=== PATIENT | female | born 1950 | race Caucasian/White ===

== ENCOUNTER 2023-01-07 16:36 | Emergency (ER) | payer OTHER ==
[~2023-01-07] VITALS: Ht 160 cm; Wt 72.0 kg
[~2023-01-07 16:36] MED LIST: ATEN-60 PO; LEVO150T10 PO; LISI-285 PO; ZOLP10TA PO
[2023-01-07 19:07] LABS: Basophils # (auto) 0.1 10 ^3/uL (0-0.2); Basophils % (auto) 0.5 % (0.0-2.0); Eosinophils # (auto) 0.2 10 ^3/uL (0-0.8); Hematocrit 29.3 % (36.0-46.0); Hemoglobin 9.4 g/dL (12.2-16.2); Lymphocytes # (auto) 2.2 10 ^3/uL (0.4-5.4); Lymphocytes % (auto) 19.2 % (10.0-50.0); Mean Corpuscular Hemoglobin 27.7 pg (28.0-32.0); Mean Corpuscular Volume 86.7 fL (80.0-100.0); Monocytes # (auto) 0.6 10 ^3/uL (0-1.3); Monocytes % (auto) 5.6 % (0.0-12.0); Neutrophils # (auto) 8.2 10 ^3/uL (1.6-8.6); Neutrophils % (auto) 72.7 % (37.0-80.0); Nucleated Red Blood Cells % 0.1 %; Red Blood Cells 3.38 10^6/uL (4.0-5.20); Red Cell Distribution Width 17.8 % (11.8-14.3); White Blood Cell 11.3 10^3/uL (4.4-10.8)
[2023-01-07 19:30] LABS: Albumin 3.5 g/dL (3.4-5.0); BUN/Creatinine Ratio 50.3 (10.0-20.0); Potassium 4.2 mmol/L (3.5-5.1)
[2023-01-07 19:33] LABS: Bilirubin, Total 0.2 mg/dL (0.2-1.0); Total Protein 8.1 g/dL (6.4-8.2)
[2023-01-07 21:31] VITALS: BP 121/47
== END 2023-01-07 21:48 | disposition home or self-care (01) ==
LOC: ER 16:36
DX: N17.9 Acute kidney failure, unspecified (principal); D64.9 Anemia, unspecified; M47.23 Other spondylosis with radiculopathy, cervicothoracic region; R79.89 Other specified abnormal findings of blood chemistry; F17.210 Nicotine dependence, cigarettes, uncomplicated; I10 Essential (primary) hypertension; R06.02 Shortness of breath
CPT/HCPCS: 36415; 70450; 71045; 72125; 80053; 83880; 84484; 85025; 93005

== ENCOUNTER → 2023-06-10 | Outpatient (CLI) | payer OTHER ==
[~2023-06-10] VITALS: Ht 162.6 cm; Wt 72.6 kg
[~2023-06-10] MED LIST changes: +ADENOSINE 61 MG in GIVE UN-DILUTED 0 ML IV STA
== END | disposition home or self-care (01) ==
LOC: XYW 08:34
PROVIDERS: ATTEND Internal Medicine
DX: R00.1 Bradycardia, unspecified (principal); R09.89 Other specified symptoms and signs involving the circulatory and respiratory systems
CPT/HCPCS: 78452; 93017; A9500; J0153

== ENCOUNTER 2023-09-05 09:04 | Inpatient (IN) | payer OTHER ==
[~2023-09-05] VITALS: Ht 162.6 cm; Wt 89.0 kg
[~2023-09-05 09:04] MED LIST changes: -ADENOSINE 61 MG in GIVE UN-DILUTED 0 ML IV STA; +FER325T PO; +LEV100T PO; -LEVO150T10 PO; -LISI-285 PO; +METF-370 PO; +PRAV20TA3 PO; -ZOLP10TA PO
[2023-09-05] MEDS ORDERED: TRANEXAMIC ACID 20 ML ONE (11:09)
[2023-09-05] MEDS ORDERED: LIDOCAINE W/ EPINEPHRINE 1% 20ML VIAL ONE (11:10)
[2023-09-05] MEDS ORDERED: SUCCINYLCHOLINE CHLORIDE 20 MG/ML 10ML VIAL IV ONE (11:22)
[2023-09-05] MEDS ORDERED: fentaNYL CITRATE 5 ML ONE (11:28)
[2023-09-05] MEDS ORDERED: ceFAZolin 2 GM/D5W100ml 100 ML IV ONE (12:24)
[2023-09-05] MEDS ORDERED: D5W/SOD CHLO 0.9% 1,000 ML IV SCH (15:30)
[2023-09-05] MEDS ORDERED: ePHEDrine SULFATE 50 MG/ML AMP IV PRN (15:30)
[2023-09-05] MEDS ORDERED: NITROGLYCERIN 0.4 MG SL TAB SL PRN (15:30)
[2023-09-05] MEDS ORDERED: MIDAZOLAM HCL 2MG/2ML 2ml VIAL (1mg/ml) IV PRN (15:30)
[2023-09-05] MEDS ORDERED: ACCU-CHEK COMFORT CURVE STRIP VI ONE (15:30)
[2023-09-05] MEDS ORDERED: MORPHINE SULFATE 4 MG/ML SYR/VIAL IV PRN (15:30)
[2023-09-05] MEDS ORDERED: ACETAMINOPHEN 325 MG TAB PO PRN (15:30)
[2023-09-05] MEDS ORDERED: HYDROmorphone HCL 2 MG/ML VL/or syr IV PRN ×2 (15:30→17:30)
[2023-09-05] MEDS ORDERED: ceFAZolin 1GM/50ML 50 ML IV SCH ×2 (15:30→22:00)
[2023-09-05] MEDS ORDERED: LABETALOL HCL 5 MG/ML 4ML SYRINGE IV PRN (15:30)
[2023-09-05] MEDS ORDERED: ONDANSETRON HCL 4 MG/2 ML VIAL IV PRN ×2 (15:30)
[2023-09-05] MEDS ORDERED: MORPHINE SULFATE INJ 2 MG/ml SYRG IV PRN ×2 (15:30)
[2023-09-05 16:12] VITALS: O2SAT 100
[2023-09-05] MEDS: CYCLOBENZAPRINE HCL 10 MG TAB PO SCH ×2 (16:29→22:12)
[2023-09-05] MEDS: HYDROcodone-ACET 10/325MG TAB PO PRN ×2 (16:29→18:37)
[2023-09-05] MEDS ORDERED: HYDROmorphone HCL 2 MG/ML VL/or syr ONE (16:37)
[2023-09-05] MEDS: HYDROmorphone HCL 2 MG/ML VL/or syr IV PRN ×2 (16:39→16:49)
[2023-09-05] MEDS ORDERED: LACTATED RINGER'S 1,000 ML IV SCH (17:30)
[2023-09-05 17:44] VITALS: BP_SYST 102; BP_SYST 95; BP_DIAS 54; BP_DIAS 63; PULSE 68; PULSE 69; RESP 18; RESP 20; TEMP 97.9; TEMP 98.5; O2SAT 99
[2023-09-05] MEDS ORDERED: DEXTROSE (50%) 50ML SYRG IV PRN (18:15)
[2023-09-05 18:46] VITALS: PULSE 73; RESP 14; O2SAT 93
[2023-09-05 20:00] VITALS: BP 95/54; PULSE 68; PULSE 76; RESP 20; TEMP 98.5; O2SAT 99
[2023-09-05 22:00] VITALS: BP 95/54; PULSE 68; RESP 20; TEMP 98.5; O2SAT 99
[2023-09-05] MEDS ORDERED: DOCUSATE SOD 100 MG CAP PO SCH (22:00)
[2023-09-05] MEDS: SENNA 8.6 MG TAB PO SCH (22:11)
[2023-09-05] MEDS: ATORVASTATIN 20 MG TAB PO SCH (22:12)
[2023-09-05] MEDS: ACCU-CHEK COMFORT CURVE STRIP VI SCH (22:17)
[2023-09-05] MEDS: InsuLIN REG 1unit/0.01ml Soln (100units/ml) SC SCH (22:23)
[2023-09-06] VITALS (9 sets, daily range): BP systolic 92–138; BP diastolic 37–62; PULSE 66–93; RESP 12–21; TEMP 97.3–98.8; O2SAT 93–99
[2023-09-06] MEDS ORDERED: LISI20TA56 PO (04:15)
[2023-09-06] MEDS ORDERED: LEVO100T8 PO (04:15)
[2023-09-06 06:24] LABS: Basophils # (auto) 0 10 ^3/uL (0-0.2); Eosinophils # (auto) 0 10 ^3/uL (0-0.8); Hemoglobin 7.4 g/dL (12.2-16.2)
[2023-09-06 06:27] LABS: Basophils % (auto) 0.2 % (0.0-2.0); Hematocrit 23.9 % (36.0-46.0); Lymphocytes % (auto) 7.3 % (10.0-50.0); Mean Corpuscular Hemoglobin 25.6 pg (28.0-32.0); Mean Corpuscular Hgb Conc. 31.1 g/dL (32.0-36.0); Mean Corpuscular Volume 82.4 fL (80.0-100.0); Monocytes # (auto) 0.8 10 ^3/uL (0-1.3); Neutrophils # (auto) 11.6 10 ^3/uL (1.6-8.6); Neutrophils % (auto) 86.5 % (37.0-80.0); Red Cell Distribution Width 19.6 % (11.8-14.3); White Blood Cell 13.4 10^3/uL (4.4-10.8)
[2023-09-06 06:32] LABS: Chloride 107 mmol/L (98-107); Potassium 4.5 mmol/L (3.5-5.1); Sodium 138 mmol/L (136-145)
[2023-09-06] MEDS: LEVOTHYROXINE SODIUM 100 MCG TAB PO SCH (06:32)
[2023-09-06 06:33] LABS: Anion Gap 7 (5-15); Calcium 8.5 mg/dL (8.7-10.4); Carbon Dioxide 24 mmol/L (20-30)
[2023-09-06] MEDS: ACCU-CHEK COMFORT CURVE STRIP VI SCH ×4 (06:33→21:28)
[2023-09-06 06:38] LABS: Blood Urea Nitrogen 23 mg/dL (9-23); Glucose 124 mg/dL (74-106)
[2023-09-06] MEDS: InsuLIN REG 1unit/0.01ml Soln (100units/ml) SC SCH ×4 (06:50→21:24)
[2023-09-06] MEDS: ATENOLOL 25 MG TAB PO SCH (09:24)
[2023-09-06] MEDS: NICOTINE 21MG/24 HR TOPICAL PATCH TD SCH (09:26)
[2023-09-06] MEDS ORDERED: IRON SUCROSE COMPLEX 200 MG in SODIUM CHL 0.9% 100 ML IV SCH (12:15)
[2023-09-06] MEDS: CYCLOBENZAPRINE HCL 10 MG TAB PO SCH ×2 (13:48→21:26)
[2023-09-06] MEDS: HYDROcodone-ACET 10/325MG TAB PO PRN (20:27)
[2023-09-06] MEDS: ATORVASTATIN 20 MG TAB PO SCH (21:25)
[2023-09-06] MEDS: SENNA 8.6 MG TAB PO SCH (21:27)
[2023-09-06 22:36] LABS: Urine Bacteria FEW /hpf (None Seen); Urine Blood Negative /uL (Negative); Urine Clarity Clear (Clear); Urine Color Colorless (Yellow); Urine Protein, UAD Negative (Negative); Urine Specific Gravity 1.007 (1.001-1.035); Urine Urobilinogen Normal (Negative); Urine WBC 6 /hpf (0 - 5); Urine pH 6.5 (5.0-8.0)
[2023-09-07] VITALS (7 sets, daily range): BP systolic 103–127; BP diastolic 49–69; PULSE 56–90; RESP 16–20; TEMP 97.8–98.2; O2SAT 95–100
[2023-09-07] MEDS: CYCLOBENZAPRINE HCL 10 MG TAB PO SCH ×3 (05:47→21:54)
[2023-09-07] MEDS: InsuLIN REG 1unit/0.01ml Soln (100units/ml) SC SCH ×4 (06:30→22:05)
[2023-09-07] MEDS: ACCU-CHEK COMFORT CURVE STRIP VI SCH ×4 (06:30→21:54)
[2023-09-07] MEDS: LEVOTHYROXINE SODIUM 100 MCG TAB PO SCH (06:33)
[2023-09-07] MEDS: HYDROcodone-ACET 10/325MG TAB PO PRN ×2 (10:09→16:19)
[2023-09-07] MEDS ORDERED: cefTRIAXone 1GM/50ML D5W 50 ML IV ONE (11:00)
[2023-09-07] MEDS: ATENOLOL 25 MG TAB PO SCH (11:48)
[2023-09-07] MEDS: NICOTINE 21MG/24 HR TOPICAL PATCH TD SCH (11:49)
[2023-09-07] MEDS ORDERED: SODIUM FERR GLUC 125 MG in NS 100 ML IV SCH (12:00)
[2023-09-07] MEDS: SENNA 8.6 MG TAB PO SCH (21:54)
[2023-09-07] MEDS: ATORVASTATIN 20 MG TAB PO SCH (21:54)
[2023-09-08] MEDS: HYDROcodone-ACET 10/325MG TAB PO PRN (04:44)
[2023-09-08 05:00] VITALS: BP 132/66; PULSE 65; RESP 16; TEMP 97.7; O2SAT 98
[2023-09-08] MEDS: LEVOTHYROXINE SODIUM 100 MCG TAB PO SCH (05:51)
[2023-09-08] MEDS: CYCLOBENZAPRINE HCL 10 MG TAB PO SCH (05:51)
[2023-09-08] MEDS: ACCU-CHEK COMFORT CURVE STRIP VI SCH ×2 (06:05→11:30)
[2023-09-08] MEDS: InsuLIN REG 1unit/0.01ml Soln (100units/ml) SC SCH ×2 (06:05→11:30)
[2023-09-08 06:53] LABS: Hematocrit 24.2 % (36.0-46.0); Hemoglobin 7.6 g/dL (12.2-16.2)
[2023-09-08 08:05] VITALS: BP 125/42; PULSE 60; RESP 20; TEMP 98; O2SAT 100
[2023-09-08] MEDS ORDERED: cefTRIAXone 1GM/50ML D5W 50 ML IV SCH (09:00)
[2023-09-08 09:01] VITALS: BP 125/42; PULSE 60; RESP 20; TEMP 98; O2SAT 97
[2023-09-08] MEDS: ATENOLOL 25 MG TAB PO SCH (10:45)
[2023-09-08] MEDS: NICOTINE 21MG/24 HR TOPICAL PATCH TD SCH (10:45)
[2023-09-08 11:47] VITALS: BP 125/42; PULSE 60; RESP 20; TEMP 98; O2SAT 97
[2023-09-08 12:15] VITALS: BP 108/49; PULSE 64; RESP 18; TEMP 97.8; O2SAT 99
== END 2023-09-08 13:32 | disposition home or self-care (01) | DRG 520 ==
LOC: SUR 09:04 → TELE 15:22 → TELE-EAST 17:13
PROVIDERS: ADMIT Orthopaedic Surgery; ATTEND Orthopaedic Surgery
PROC: 00NY0ZZ Release Lumbar Spinal Cord, Open Approach (ICD-10-PCS; 2023-09-05)
PROC: 01NB0ZZ Release Lumbar Nerve, Open Approach (ICD-10-PCS; 2023-09-05)
PROC: 4A11X4G Monitoring of Peripheral Nervous Electrical Activity, Intraoperative, External Approach (ICD-10-PCS; 2023-09-05)
PROC: 0SW004Z Revision of Internal Fixation Device in Lumbar Vertebral Joint, Open Approach (ICD-10-PCS; principal; 2023-09-05 11:55)
DX: M96.1 Postlaminectomy syndrome, not elsewhere classified (principal); D63.8 Anemia in other chronic diseases classified elsewhere; E03.9 Hypothyroidism, unspecified; E78.00 Pure hypercholesterolemia, unspecified; I10 Essential (primary) hypertension; E11.9 Type 2 diabetes mellitus without complications; J44.9 Chronic obstructive pulmonary disease, unspecified; Z82.49 Family history of ischemic heart disease and other diseases of the circulatory system; M48.07 Spinal stenosis, lumbosacral region; M43.17 Spondylolisthesis, lumbosacral region
CPT/HCPCS: 36415; 72100; 76000; 80048; 81001; 82962; 85014; 85018; 85025; 86850; 86900; 86901; 87070; 87075; 87205; 97110; 97116; 97163; 97530; G0378; J0330; J0690; J0696; J1815

== ENCOUNTER 2024-10-26 06:16 | Inpatient (IN) | payer OTHER ==
[~2024-10-26] VITALS: Ht 160 cm; Wt 90.1 kg
[2024-10-26] VITALS (32 sets, daily range): BP systolic 84–143; BP diastolic 37–66; PULSE 60–82; RESP 11–22; TEMP 98.1; O2SAT 91–100
[~2024-10-26 06:16] MED LIST changes: +ASPI81CH59 PO; +CLOP75TA70 PO; +HYDR25TA4 PO; -LEV100T PO; +LEVO-849 PO; +PRE5T PO; +SACU1TAB PO
[2024-10-26] MEDS: HEPARIN SODIUM (PORCINE) 5000 UNITS/ML 1ML VIAL ONE ×3 (07:00→08:57)
[2024-10-26] MEDS: BUPIVACAINE 0.5% P/F INJ 10 ML VIAL ONE (07:05)
[2024-10-26] MEDS: HEPARIN 1,000 UNITS/ml 1ML VIAL ONE (07:07)
[2024-10-26] MEDS ORDERED: LIDOCAINE 1% INJ PF 5ML AMP ONE (07:26)
[2024-10-26] MEDS ORDERED: fentaNYL CITRATE 100 MCG/2 ML VL ONE (07:27)
[2024-10-26] MEDS ORDERED: MIDAZOLAM HCL 2MG/2ML 2ml VIAL (1mg/ml) ONE (07:27)
[2024-10-26] MEDS ORDERED: MEPERIDINE HCL (25 MG/ML) 1ML VIAL ONE (07:27)
[2024-10-26] MEDS: GELATIN 1 SPONGE SIZE 100 TOP ONE (07:47)
[2024-10-26] MEDS: THROMBIN (BOVINE) 5000 UNIT SOL VIAL ONE (07:48)
[2024-10-26] MEDS: SUCCINYLCHOLINE CHLORIDE 20 MG/ML 10ML VIAL IV ONE (07:54)
[2024-10-26] MEDS ORDERED: DexAMETHasone SOD PHOS 10MG/1ML VIAL INJ ONE (08:32)
[2024-10-26] MEDS ORDERED: PROPOFOL 10 MG/ML 20 ML IV ONE (08:32)
[2024-10-26] MEDS: ceFAZolin 2 GM/D5W100ml 100 ML IV ONE (08:40)
[2024-10-26] MEDS ORDERED: MORPHINE SULFATE 4 MG/ML SYR/VIAL IV PRN (08:45)
[2024-10-26] MEDS ORDERED: hydrALAZINE HCL 20 MG/ML VL IV PRN (08:45)
[2024-10-26] MEDS ORDERED: ePHEDrine SULFATE 50 MG/ML AMP IV PRN (08:45)
[2024-10-26] MEDS ORDERED: HYDROmorphone HCL 2 MG/ML VL/or syr IV PRN (08:45)
[2024-10-26] MEDS ORDERED: MIDAZOLAM HCL 2MG/2ML 2ml VIAL (1mg/ml) IV PRN (08:45)
[2024-10-26] MEDS: ONDANSETRON HCL 4 MG/2 ML VIAL IV ONE (08:45)
[2024-10-26] MEDS: LIDOCAINE 1% (LOCAL ANESTH.) PF 5ml SDV ONE (08:53)
[2024-10-26] MEDS: LIDOCAINE 1% HCL (LOCAL ANESTH.) INJ 20ML MDV ONE (09:50)
[2024-10-26] MEDS: BUPIVACAINE HCL 0.25% P/F 10 ML VIAL ONE (09:50)
[2024-10-26] MEDS ORDERED: SUGAMMADEX 200mg/2ml Vial (100MG/ML) IV ONE (09:53)
[2024-10-26] MEDS ORDERED: ETOMIDATE (2MG/ML) 20ML VIAL IV ONE (09:53)
[2024-10-26] MEDS ORDERED: ROCURONIUM 10MG/ML 10ML VIAL IV ONE (09:54)
--- NOTE | 2024-10-26 10:33 | POSTOP ---
Post-Operative Note Post-Operative Note Preop Diagnosis Carotid artery stenosis Postop Diagnosis: Left carotid artery stenosis with hemorrhagic plaque Operation performed Left carotid endarterectomy. Specimen Left carotid artery plaque Anesthesia: General Anesthesiologist: Nery Blood Loss(fluid mgmt) 100 mL Tourniquet Time None Surgeon Paevl Anand MD Supervisor [place] [place] None Implant Bovine patch Complications & Mgmt None Date 10/26/24 Time 10:30 PAVEL ANAND Jr., MD Oct 26, 2024 10:33
--- NOTE | 2024-10-26 10:38 | DVHOP2 ---
Operative Report - 2 Report Details Date: 10/26/24 Preop Diagnosis: Carotid artery stenosis Postop Diagnosis: Left carotid artery stenosis with hemorrhagic plaque Surgeon: Pavel Vincent MD Load Dropper: None Anesthesiologist: Nery Anesthesia: General Implant: Bovine patch Consent: The patient was informed of the risks and benefits of the procedure. These include but are not limited to complications of anesthesia, postoperative infection, incomplete relief of symptoms, recurrence of symptoms, damage to blood vessels, nerves and tendons, deep venous thrombosis, pulmonary embolism and possible need for repeat surgery in the future. Complications: None Estimated Blood Loss: 100 mL Name of Procedure Performed Left carotid endarterectomy. Procedure Details Procedure Details: The patient was identified in the preop hold area is being [place]. She was consented and preop by myself. She was brought back to the operating room placed the operating table in supine position after adequate induction of anesthesia antibiotics and time-out the left neck was prepped and draped in normal surgical fashion standard carotid incision was made just medial to sternocleidomastoid muscle Bovie cauterization was used for hemostasis dissection was taken down through the platysma followed by identification of the facial vein which was ligated with 0 silk sutures and hemoclips. The jugular vein was then retracted laterally. This allowed us to gain access to the common carotid artery which was circumferentially controlled. The vagus nerve was lateral and was carefully dissected and preserved. Dissection was then taken up to the bifurcation 1% preservative-free lidocaine was injected into the carotid bifurcation no hemodynamic changes were noted. The superior thyroid artery the external carotid artery and the internal carotid artery were all circumferentially controlled with a vessel loops. The plaque appeared to be at the bifurcation. 5000 units of heparin was given at this point in time possibly 5 minutes passed and the all vessels involved were clamped. An 11 blade was used to make arteriotomy on the common carotid artery which was extended into the internal carotid artery with Anders scissors. The plaque was removed via endarterectomy the plaque was hemorrhagic. Once the entire plaque was removed [place] shunt was then inserted without difficulty flow was restored to the internal carotid artery. At this point in time of the and some of the vessel was then cleaned out no further debris was noted. At this point in time the bovine pericardial patch was then sewn to the left common carotid artery and internal carotid artery with six 0 Prolene suture.. Prior to completion of the anastomosis the the shunt was removed the vessels were flushed with heparinized saline. The anastomosis was complete flow was restored to the vessels good Doppler signal was noted in all vessels. Hemostasis was was excellent no bleeding from the suture line was noted Surgicel was applied over top of the suture line. A seven [place] flat JARRETT drain was then placed via an exit site in the neck the wound was then irrigated out and then closed with deep layer of the carotid sheath being closed with 2-0 Vicryl sutures interruptedly followed by t he platysma closure with 3-0 Vicryl sutures. Followed by skin closure with 4-0 Monocryl subcuticular suture. Dermabond was applied the skin a nylon suture was then used for securing the JARRETT drain. The sponge and needle counts were correct of the end of the procedure patient awoke without any difficulties moving all extremities taken to the PACU in stable condition Specimen: Left carotid artery plaque Condition Good Disposition icu PAVEL VINCENT Jr., MD Oct 26, 2024 10:38
[2024-10-26] MEDS ORDERED: NITROGLYCERIN 0.4 MG SL TAB SL PRN (10:45)
[2024-10-26] MEDS ORDERED: MORPHINE SULFATE INJ 2 MG/ml SYRG IV PRN (10:45)
[2024-10-26] MEDS ORDERED: fentaNYL CITRATE 100 MCG/2 ML VL IV ONE (15:20)
--- NOTE | 2024-10-26 17:54 | DVHHP2 ---
History of Present Illness Reason for Visit: Here for elective carotid endarterectomy History of Present Illness This is a 73-year-old female with a left carotid artery stenosis, hypertension, dyslipidemia, diabetes came to the hospital underwent elective left carotid endarterectomy surgery. Subsequently patient is admitted to the ICU postop monitoring. Hospitalist management as requested by the surgeon while she was in the hospital. Currently patient postop clinically stable. Denies any headache dizziness or lightheadedness. No chest pain or shortness for breath. Other re view of systems reviewed normal Past Medical History Carotid artery stenosis, diabetes mellitus type 2, dyslipidemia, hypertension, hypothyroidism Past Surgical History: None Family History: Hypertension Smoke: No ALCOHOL: rare Lives: with Family Review of Systems Review of Systems No chest pain or shortness for breath. Other review of systems reviewed and are normal Allergies: Coded Allergies: Nickel (Unverified Allergy, Intermediate, Severe rash/blsiters, 10/23/24) Uncoded Allergies: Adhesive tape (Allergy, Intermediate, Severe rash/blisters, 10/23/24) Medications Current Medications Medications Dose Ordered Sig/John Route Start Time Stop Time Status Last Admin Dose Admin Nitroglycerin 0.4 mg Q5MINP PRN SL 10/26/24 10:45 Morphine Sulfate 2 mg Q30M PRN IV 10/26/24 10:45 Albuterol 2.5 mg Q4HPRN PRN NEB 10/26/24 17:45 Ipratropium [place] 0.5 mg Q4HPRN PRN NEB 10/26/24 17:45 Atenolol 25 mg DAILY PO 10/27/24 10:00 UNV Levothyroxine Sodium 100 mcg DAILY PO 10/27/24 10:00 UNV Pravastatin Sodium 20 mg DAILY PO 10/27/24 10:00 UNV Exam Vital Signs Vital Signs Date Time Temp Pulse Resp B/P (MAP) Pulse Ox O2 Delivery O2 Flow Rate FiO2 10/26/24 17:00 62 14 111/45 (67) 93 10/26/24 13:00 Nasal Cannula 2.0 10/26/24 10:26 98.0 98.0 Exam Comfortable in bed. Alert awake oriented to place and person. HEENT neck supple no JVD. Pupils equal round react to light. Heart regular rate and rhythm S1-S2. Lungs fair air movement without rales wheezes. Abdomen soft nontender positive bowel sounds. Extremities no edema positive distal pedal pulses. Neurologic no focal deficits. Assessment/Plan Assessment/Plan Carotid artery stenosis status post left carotid endarterectomy Diabetes mellitus type 2 Dyslipidemia Hypothyroidism Clinically she was stable. Blood pressure is in the normal range. We will resume beta dariel overnight. Hold other blood pressure medications. Resume cholesterol and thyroid medications. Hold metformin. Sliding scale insulin and Accu-Cheks. Follow the labs in the morning. Physical therapy evaluation. Incentive spirometry. Breathing treatments and pain medications as needed. Otherwise further clinical management per clinical course. Discussed with the recovery nurse in the PACU regarding care plan. Plan discussed with: Other My Orders Orders - SILVIA FARIAS MD Procedure Category Date Status Time Atenolol Tablet PHA 10/27/24 Transmitted (Tenormin Tablet) 10:00 Levothyroxine Tablet PHA 10/27/24 Transmitted (Synthroid Tablet) 10:00 Pravastatin Sodium PHA 10/27/24 Transmitted Tablet (Pravachol Tab 10:00 Problem List: (1) Hypothyroidism (2) Hypercholesterolemia (3) Hypertension SILVIA FARIAS MD Oct 26, 2024 17:54
[2024-10-26] MEDS ORDERED: ACETAMINOPHEN 325 MG TAB PO PRN (18:00)
[2024-10-26] MEDS ORDERED: DEXTROSE (50%) 50ML SYRG IV PRN (18:00)
[2024-10-26] MEDS ORDERED: HYDROcodone-ACET 5/325MG TAB PO PRN (18:00)
[2024-10-26] MEDS: ALBUTEROL SULF 2.5 MG/0.5ML(0.5%) NEB SOLN NEB PRN (18:14)
[2024-10-26] MEDS: IPRATROPIUM BROM 0.5 MG/2.5ML INH SOL NEB PRN (18:14)
[2024-10-26] MEDS: InsuLIN REG 1unit/0.01ml Soln (100units/ml) SC SCH (22:00)
[2024-10-26] MEDS: ACCU-CHEK COMFORT CURVE STRIP VI SCH (22:30)
[2024-10-27] VITALS (42 sets, daily range): BP systolic 85–139; BP diastolic 37–58; PULSE 49–83; RESP 10–27; TEMP 36.6; O2SAT 92–100
[2024-10-27 03:45] LABS: Basophils # (auto) 0.1 10 ^3/uL (0-0.2); Basophils % (auto) 0.4 % (0.0-2.0); Eosinophils # (auto) 0 10 ^3/uL (0-0.8); Hematocrit 30.5 % (36.0-46.0); Hemoglobin 9.9 g/dL (12.2-16.2); Lymphocytes # (auto) 0.9 10 ^3/uL (0.4-5.4); Lymphocytes % (auto) 6.7 % (10.0-50.0); Mean Corpuscular Hemoglobin 30.8 pg (28.0-32.0); Mean Corpuscular Hgb Conc. 32.3 g/dL (32.0-36.0); Mean Corpuscular Volume 95.2 fL (80.0-100.0); Monocytes # (auto) 0.4 10 ^3/uL (0-1.3); Monocytes % (auto) 3.1 % (0.0-12.0); Neutrophils # (auto) 12.2 10 ^3/uL (1.6-8.6); Neutrophils % (auto) 89.8 % (37.0-80.0); Platelet Count (auto) 240 10^3/uL (140-450); Red Blood Cells 3.21 10^6/uL (4.0-5.20); Red Cell Distribution Width 18.2 % (11.8-14.3); White Blood Cell 13.6 10^3/uL (4.4-10.8)
[2024-10-27 03:59] LABS: Anion Gap 10 (5-15); Carbon Dioxide 21 mmol/L (20-31); Chloride 106 mmol/L (98-107); Potassium 4.3 mmol/L (3.5-5.1); Sodium 137 mmol/L (136-145)
[2024-10-27 04:00] LABS: Calcium 9.2 mg/dL (8.7-10.4)
[2024-10-27 04:05] LABS: BUN/Creatinine Ratio 21.2 (10.0-20.0)
[2024-10-27 04:09] LABS: Blood Urea Nitrogen 25 mg/dL (9-23); Glucose 162 mg/dL (74-106)
--- NOTE | 2024-10-27 06:58 | DVHPN2 ---
Progress Note Date Seen: Oct 27, 2024 Has the PT tested + for MRSA If YES, has PT been informed?: No Medical Necessity Reason Pt with a Central, PICC or Fol: No Subjective Patient reports: Other (slight difficulty swallowing initiall after surgery but is improving) Objective vital signs Vital Sign Date Time Temp Pulse Resp B/P (MAP) Pulse Ox O2 Delivery O2 Flow Rate FiO2 10/27/24 06:00 11 97 Nasal Cannula* 2 10/27/24 06:00 66 122/49 (73) 10/27/24 04:00 97.4 97.4 Total Intake and Output 10/26/24 10/26/24 10/27/24 15:00 23:00 07:00 Intake Total 100 ml 400 ml 500 ml Output Total 5 ml 20 ml 20 ml Balance 95 ml 380 ml 480 ml medications Current Medications Medications Dose Ordered Sig/John Route Start Time Stop Time Status Last Admin Dose Admin Nitroglycerin 0.4 mg Q5MINP PRN SL 10/26/24 10:45 Morphine Sulfate 2 mg Q30M PRN IV 10/26/24 10:45 Albuterol 2.5 mg Q4HPRN PRN NEB 10/26/24 17:45 10/27/24 03:37 2.5 MG Ipratropium [place] 0.5 mg Q4HPRN PRN NEB 10/26/24 17:45 10/27/24 03:37 0.5 MG Atenolol 25 mg DAILY PO 10/27/24 10:00 Levothyroxine Sodium 100 mcg DAILY PO 10/27/24 10:00 Pravastatin Sodium 20 mg DAILY PO 10/27/24 10:00 Diagnostic Test (Pha) 1 strip ACHS 10/26/24 22:00 10/26/24 22:30 1 STRIP Insulin Human Regular ACHS SC 10/26/24 22:00 10/27/24 06:28 2 UNITS Dextrose 50 ml UD PRN IV 10/26/24 18:00 Acetaminophen/ Hydrocodone Bitart 1 tab Q4HPRN PRN PO 10/26/24 18:00 Acetaminophen 650 mg Q4HP PRN PO 10/26/24 18:00 Examination: GENERAL:Normal, HEENT:Normal, NECK:Normal (JARRETT drain 20 mL overnight JARRETT was removed morning), LUNGS:Normal, CVS:Normal, ABDOMEN:Normal, MSK:Normal, SKIN:Normal, NEURO:Normal, :Normal laboratory and microbiology Laboratory Tests 10/27/24 03:30 Test 10/27/24 03:30 Range/Units Serum Glucose 162 H 74-106 mg/dL Problem List/Assessment/Plan Problem List/Assessment/Plan Status post carotid endarterectomy postop day 1. DCA line Out of bed Regular diet Discharge home after medical clearance this morning. Plan discussed with: Patient My Orders My Orders Orders - CURLY VINCENT Jr., MD Procedure Category Date Status Time Nitroglycerin PHA 10/26/24 In Process Sublingual (Ntrostat 10:45 Morphine Sulfate PHA 10/26/24 In Process Injection 10:45 Stat Ekg For Chest SHAN 10/26/24 In Process Pain 10:39 Notify Of Changes [facility] 10/26/24 In Process From Base 10:39 Plant General Manager For [facility] 10/26/24 In Process 24 Hours 10:39 Emergency Dysrhythmia [facility] 10/26/24 In Process Protocol 10:39 Rhythm Strips Once [facility] 10/26/24 In Process Every Shift 10:39 Oxygen By Nasal RT 10/26/24 Transmitted Cannula 10:39 Admit ADMIT 10/26/24 Transmitted 11:35 Cardiac DIET 10/26/24 Transmitted Diet-2gna,Lofat,Lochol Lunch Mrsa Screen LENNY 10/26/24 In Process 18:34 Education - Smoking SHAN 10/26/24 In Process Cessation 18:34 * Smoking Cessation CONS 10/26/24 Transmitted Consult 18:34 CURLY VINCENT Jr., MD Oct 27, 2024 06:58
[2024-10-27] MEDS: ATENOLOL 25 MG TAB PO SCH (10:00)
--- NOTE | 2024-10-27 10:42 | DVH ---
EXAM: CT STROKE CTH HISTORY: Neuro deficit. COMPARISON: None TECHNIQUE: Axial images of the head were obtained and reformatted in coronal and sagittal planes. All CT scans at this medical facility are performed using dose modulation techniques as appropriate t o a performed exam including the following: Automated exposure control was utilized; adjustment of th e MA and/or KV according to patient size; and use of iterative reconstruction technique. CT Dose: CTDI volume is 58 mGy. Dose-length product is 1025 mGy*cm FINDINGS: There is no evidence of acute intracranial hemorrhage, mass, mass effect midline shift. There is no h ydrocephalus or extra-axial fluid collection. There are patchy hypodense areas in the supratentorial white matter compatible with mild chronic microvascular ischemic changes. Hoang-white matter different iation is maintained. The visualized paranasal sinuses and mastoid air cells are clear. The calvarium is intact. IMPRESSION: 1. No acute intracranial process. HS:Y
[2024-10-27] MEDS: PRAVASTATIN SODIUM 20 MG TAB PO SCH (10:57)
[2024-10-27] MEDS: LEVOTHYROXINE SODIUM 100 MCG TAB PO SCH (10:57)
[2024-10-27] MEDS: ASPirin 81 mg TAB PO ONE (10:59)
[2024-10-27] MEDS: diphenhdrAMINE HCL 25 MG CAP PO ONE (12:07)
--- NOTE | 2024-10-27 16:36 | DVHDS2 ---
Discharge Summary Date of Admission Oct 26, 2024 at 11:35 Date of Discharge: Oct 27, 2024 Labs/Diagnostic Data: Laboratory Results Test 10/27/24 06:20 10/27/24 03:30 POC Glucose 142 mg/dl (70-106) White Blood Count 13.6 10^3/uL (4.4-10.8) Red Blood Count 3.21 10^6/uL (4.0-5.20) Hemoglobin 9.9 g/dL (12.2-16.2) Hematocrit 30.5 % (36.0-46.0) Mean Corpuscular Volume 95.2 fL (80.0-100.0) Mean Corpuscular Hemoglobin 30.8 pg (28.0-32.0) Mean Corpuscular Hemoglobin Concent 32.3 g/dL (32.0-36.0) Red Cell Distribution Width 18.2 % (11.8-14.3) Platelet Count 240 10^3/uL (140-450) Mean Platelet Volume 10.7 fL (6.9-10.8) Neutrophils (%) (Auto) 89.8 % (37.0-80.0) Lymphocytes (%) (Auto) 6.7 % (10.0-50.0) Monocytes (%) (Auto) 3.1 % (0.0-12.0) Eosinophils (%) (Auto) 0.0 % (0.0-7.0) Basophils (%) (Auto) 0.4 % (0.0-2.0) Neutrophils # (Auto) 12.2 10 ^3/uL (1.6-8.6) Lymphocytes # (Auto) 0.9 10 ^3/uL (0.4-5.4) Monocytes # (Auto) 0.4 10 ^3/uL (0-1.3) Eosinophils # (Auto) 0 10 ^3/uL (0-0.8) Basophils # (Auto) 0.1 10 ^3/uL (0-0.2) Nucleated Red Blood Cells 0.0 % Sodium Level 137 mmol/L (136-145) Potassium Level 4.3 mmol/L (3.5-5.1) Chloride Level 106 mmol/L (98-107) Carbon Dioxide Level 21 mmol/L (20-31) Anion Gap 10 (5-15) Blood Urea Nitrogen 25 mg/dL (9-23) Creatinine 1.18 mg/dL (0.550-1.02) Glomerular Filtration Rate Calc 49 mL/min (>90) BUN/Creatinine Ratio 21.2 (10.0-20.0) Serum Glucose 162 mg/dL (74-106) Calcium Level 9.2 mg/dL (8.7-10.4) Other Laboratory Tests 10/27/24 03:30 Brief Hx & Hospital Course: This is a 73-year-old female with a left carotid artery stenosis, hypertension, dyslipidemia, diabetes came to the hospital underwent elective left carotid endarterectomy surgery. Subsequently patient is admitted to the ICU postop monitoring. Hospitalist management as requested by the surgeon while she was in the hospital. Currently patient postop clinically stable. Denies any headache dizziness or lightheadedness. No chest pain or shortness for breath. Other review of systems reviewed normal. She was admitted postop did well. Swallowing appropriately without any difficulties. Re-evaluated by vascular surgery and felt she was stable to be discharged home. I have talked with the patient regarding outpatient follow up with vascular surgeon in one week as recommended. Patient is advised to resume her antiplatelet therapy and blood pressure medications. Patient verbalized understanding over hospital diagnosis, treatment she received, discharge medications, discharge instructions and agreed with follow-up plan of care. Operations or Procedures Attending Phy: PAVEL VINCENT Jr., MD Operative Report - 2 Report Details Date: 10/26/24 Preop Diagnosis: Carotid artery stenosis Postop Diagnosis: Left carotid artery stenosis with hemorrhagic plaque Surgeon: Pavel Vincent MD Box Puller: None Anesthesiologist: Nery Anesthesia: General Implant: Bovine patch Consent: The patient was informed of the risks and benefits of the procedure. These include but are not limited to complications of anesthesia, postoperative infection, incomplete relief of symptoms, recurrence of symptoms, damage to blood vessels, nerves and tendons, deep venous thrombosis, pulmonary embolism and possible need for repeat surgery in the future. Complications: None Estimated Blood Loss: 100 mL Name of Procedure Performed Left carotid endarterectomy. Procedure Details Procedure Details: The patient was identified in the preop hold area is being [place]. She was consented and preop by myself. She was brought back to the operating room placed the operating table in supine position after adequate induction of anesthesia antibiotics and time-out the left neck was prepped and draped in normal surgical fashion standard carotid incision was made just medial to sternocleidomastoid muscle Bovie cauterization was used for hemostasis dissection was taken down through the platysma followed by identification of the facial vein which was ligated with 0 silk sutures and hemoclips. The jugular vein was then retracted laterally. This allowed us to gain access to the common carotid artery which was circumferentially controlled. The vagus nerve was lateral and was carefully dissected and preserved. Dissection was then taken up to the bifurcation 1% preservative-free lidocaine was injected into the carotid bifurcation no hemodynamic changes were noted. The superior thyroid artery the external carotid artery and the internal carotid artery were all circumferentially controlled with a vessel loops. The plaque appeared to be at the bifurcation. 5000 units of heparin was given at this point in time possibly 5 minutes passed and the all vessels involved were clamped. An 11 blade was used to make arteriotomy on the common carotid artery which was extended into the internal carotid artery with Anders scissors. The plaque was removed via endarterectomy the plaque was hemorrhagic. Once the entire plaque was removed [place] shunt was then inserted without difficulty flow was restored to the internal carotid artery. At this point in time of the and some of the vessel was then cleaned out no further debris was noted. At this point in time the bovine pericardial patch was then sewn to the left common carotid artery and internal carotid artery with six 0 Prolene suture.. Prior to completion of the anastomosis the the shunt was removed the vessels were flushed with heparinized saline. The anastomosis was complete flow was restored to the vessels good Doppler signal was noted in all vessels. Hemostasis was was excellent no bleeding from the suture line was noted Surgicel was applied over top of the suture line. A seven [place] flat JARRETT drain was then placed via an exit site in the neck the wound was then irrigated out and then closed with deep layer of the carotid sheath being closed with 2-0 Vicryl sutures interruptedly followed by the platysma closure with 3-0 Vicryl sutures. Followed by skin closure with 4-0 Monocryl subcuticular suture. Dermabond was applied the skin a nylon suture was then used for securing the JARRETT drain. The sponge and needle counts were correct of the end of the procedure patient awoke without any difficulties moving all extremities taken to the PACU in stable condition Specimen: Left carotid artery plaque Condition Good Condition at Discharge: Good Final Diagnosis/Problems List Left carotid artery stenosis with hemorrhagic plaque Discharge Disposition: Home Discharge Instruct/Medications Diet: Consistent carbohydrate, Cardiac 2g Na,low cholest Activity: No Restrictions, As Tolerated Follow Up/Referral: With the Dr. Vincent next week follow up carotid surgery Medications: Home medication Continued Medications: Aspirin (Aspirin Low Dose) 81 Mg Chw 81 MG PO DAILY, TAB.CHEW Atenolol (Atenolol) 25 Mg Tab 25 MG PO DAILY for 30 Days, MG Clopidogrel Bisulfate (Clopidogrel) 75 Mg Tab 75 MG PO DAILY, TAB Ferrous Sulfate (Ferrous Sulfate) 325 Mg Tb 325 MG PO BID, TAB Hydrochlorothiazide (Hydrochlorothiazide) 25 Mg Tab 25 MG PO DAILY, TAB Levothyroxine Sodium (Synthroid Tablet) 100 Mcg Tb 100 MCG PO DAILY, TAB Metformin Hydrochloride (Metformin Hcl) 500 Mg Tab 500 MG PO DAILY, TAB Pravastatin Sodium (Pravachol Tablet) 20 Mg Tb 20 MG PO DAILY, TAB Prednisone (Prednisone) 5 Mg Tab 5 MG PO DAILY, TAB Sacubitril-Valsartan (Entresto 24-26 mg) 1 Tab Tab 1 TAB PO BID, TAB Discharge Statement: "Patient was advised to return to the ER or call 911 if any headaches, dizziness, shortness of breath, chest pain, abdominal pain, bleeding, fevers, or worsening of medical condition. Patient was counseled about treatment plan, medications, possible side effects, patientverbalized understanding. All questions were answered to the best of my ability. This discharge took greater then 30 minutes in planning, reviewing documentation, counseling the patient, and discussing with other team members." ASSESSMENT ASSESSMENT Assessment Left carotid artery stenosis with hemorrhagic plaque SILVIA FARIAS MD Oct 27, 2024 16:36
[2024-10-28] MEDS ORDERED: ASPirin 81 mg TAB PO SCH (10:00)
== END 2024-10-27 17:15 | disposition home or self-care (01) | DRG 39 ==
LOC: SUR 06:16 → TELE 11:35 → CATH ICU 18:34 → TELE-WESTW 10-27 14:15
PROVIDERS: ADMIT Surgery Vascular Surgery; ATTEND Surgery Vascular Surgery
PROC: 03CL0ZZ Extirpation of Matter from Left Internal Carotid Artery, Open Approach (ICD-10-PCS; 2024-10-26)
PROC: 03UL0KZ Supplement Left Internal Carotid Artery with Nonautologous Tissue Substitute, Open Approach (ICD-10-PCS; 2024-10-26)
PROC: 03UJ0KZ Supplement Left Common Carotid Artery with Nonautologous Tissue Substitute, Open Approach (ICD-10-PCS; 2024-10-26)
PROC: 03CJ0ZZ Extirpation of Matter from Left Common Carotid Artery, Open Approach (ICD-10-PCS; principal; 2024-10-26 08:15)
DX: I65.22 Occlusion and stenosis of left carotid artery (principal); E03.9 Hypothyroidism, unspecified; E11.9 Type 2 diabetes mellitus without complications; E78.00 Pure hypercholesterolemia, unspecified; I10 Essential (primary) hypertension; Z91.048 Other nonmedicinal substance allergy status; Z82.49 Family history of ischemic heart disease and other diseases of the circulatory system; Z79.4 Long term (current) use of insulin
CPT/HCPCS: 36415; 70450; 80048; 82962; 85025; 86850; 86900; 86901; 87081; 94640; 97163; G0378; J0330; J1100; J2003; J2250; J2405; J2704; J3490